=== PATIENT | male | born 1990 | race Caucasian/White ===

== ENCOUNTER 2017-11-23 04:00 | Emergency (ER) | payer OTHER, SELFPAY ==
[2017-11-23 04:02] VITALS: BP 127/65; PULSE 92; RESP 22; TEMP 36.4; O2SAT 96; BMI 36.0
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
[2017-11-23 04:06] VITALS: O2SAT 96
[2017-11-23] MEDS: 0.9% Normal Saline 1,000 ML 999 ML IV (04:13)
[2017-11-23] MEDS: Ondansetron 4 MG/2 ML Vial IV (04:14)
[2017-11-23] MEDS: fentaNYL 100 MCG/2 ML Ampul 50 MCG IV ×2 (04:14→04:27)
[2017-11-23] MEDS: Cefazolin 1 GM/50 ML BAG IV (04:14)
[2017-11-23] MEDS: Diphth,Pertuss(Acell),Tet Vac 0.5 ML Vial IM (04:16)
--- NOTE | 2017-11-23 04:21 | NURSING ---
CALLED [phone] REQUESTED BT THIS PT TO TELL MALAIKA SANCHEZ OF HIS SITUATION.
--- NOTE | 2017-11-23 04:22 | ED.RN ---
RAPID FAST EXAM NEGATIVE
--- NOTE | 2017-11-23 04:22 | ED.RN ---
LEFT WRIST SPLINTED AT THIS TIME
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
[2017-11-23 04:28] VITALS: BP 139/116; PULSE 81; RESP 12; O2SAT 100
--- NOTE | 2017-11-23 04:29 | ED.RN ---
PATIENT ADMITS TO TAKING 0.5 MG PO XANNAX TONIGHT
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
[2017-11-23 04:31] VITALS: BP 148/97; PULSE 86; RESP 20; O2SAT 98
--- NOTE | 2017-11-23 04:31 | ED.RN ---
[facility] AT THE BEDSIDE TO ASSUME PATIENT CARE
[2017-11-23 04:34] LABS: Absolute Lymphocyte Count 4.94 X10^3/ul (0.83-4.51); Absolute Neutrophil Count 24.5 X10^3/uL (2.0-7.7); Basophil# 0.04 X10^3/uL; Basophil% 0.1 % (0-1); Eosinophils% 0.3 % (0-5); Hemoglobin 13.1 g/dl (13.0-16.5); Lymphocyte # 4.94 X10^3/ul (4.0); Lymphocyte % 15.7 % (19-41); Mean Corp Hgb Conc 33.6 g/gl (32-36); Mean Corpuscular Hgb 30.4 pg (27.0-32.0); Mean Corpuscular Volume 90.5 fL (80-94); Mean Platelet Vol. 9.3 fl (6.2-12.0); Monocyte# 1.32 X10^3/uL; Monocyte% 4.2 % (0-10); Neutrophil # 24.53 X10^3/uL (2.7-7.7); Neutrophil % 78.1 % (47-70); Platelet Count 292 K/mm3 (150-450); RBC Distribution Width SD 43.1 fl (35.1-43.9); Red Blood Count 4.31 M/mm3 (4.6-6.2)
[2017-11-23 04:35] LABS: POSITIVE COUNT YES; POSITIVE DIFFERENTIAL YES; POSITIVE MORPHOLOGY NO; White Blood Count 31.4 K/mm3 (4.4-11.0)
--- NOTE | 2017-11-23 04:35 | ED.RN ---
LAB CALLED WITH CRITICAL RESULTS WBC COUNT 31.4. DR. MCBRIDE MADE AWARE. NO NEW ORDERS AT THIS TIME
[2017-11-23 04:36] LABS: Differential Indicated SCAN CRITERIA MET
[2017-11-23 04:57] LABS: Anion Gap 7 (5-15); BUN 11 mg/dL (7-18); BUN/Creat Ratio 12.2 RATIO (10-20); Chloride 108 mmol/L (98-107); EST Glomerular Filtration Rate 106 mL/min (>60); Est Glom Filt Rate - Afr Amer 128 mL/min (>60); Estimated Creatinine Clearance 134.12 ml/min; Glucose 136 mg/dL (74-106); Potassium 3.2 mmol/L (3.5-5.1); Sodium Level 140 mmol/L (136-145)
[2017-11-24 09:32] LABS: Pathologist Review Reviewed
== END 2017-11-23 04:40 | disposition short-term general hospital (02) ==
PROVIDERS: Emergency Provider Emergency Medicine; Family Provider Family Medicine; PCP Family Medicine
DX: S20.212A Contusion of left front wall of thorax, initial encounter (principal); S09.90XA Unspecified injury of head, initial encounter; S01.312A Laceration without foreign body of left ear, initial encounter; S00.12XA Contusion of left eyelid and periocular area, initial encounter; S09.92XA Unspecified injury of nose, initial encounter; S09.93XA Unspecified injury of face, initial encounter; M54.9 Dorsalgia, unspecified; S30.810A Abrasion of lower back and pelvis, initial encounter; M21.932 Unspecified acquired deformity of left forearm; V89.2XXA Person injured in unspecified motor-vehicle accident, traffic, initial encounter; Y93.9 Activity, unspecified; Y92.9 Unspecified place or not applicable; Z72.0 Tobacco use
CPT/HCPCS: 36415; 71045; 80048; 85025; 90715; 96365; 96375; 99285; J7030; A4216; J2405

== ENCOUNTER 2022-03-28 23:52 | Emergency (ER) | payer MEDICAID, SELFPAY ==
[2022-03-28 23:53] VITALS: BP 146/78; PULSE 75; RESP 16; TEMP 37.1; O2SAT 99; BMI 35.1
--- NOTE | 2022-03-29 00:26 | RAD_ITS ---
STUDY: X-RAY - LEFT KNEE REASON FOR EXAM: Male, 31 years old. Injury TECHNIQUE: 2 view(s) of the knee. COMPARISON: None. FINDINGS: Normal visualized distal femur. There is a depressed partially visualized fracture of the anterior lateral tibial plateau. There is at least a 7 day 10 mm depression of this fragment. There is minimal focal soft tissue edema however there is a large joint effusion. Normal proximal tibiofibular articulation. There is mild narrowing medial femorotibial compartment. There is mild peripheral widening due to a fracture of the anterior lateral tibial plateau. There is mild degenerative arthrosis of the patellofemoral articulation. There is a large volume joint effusion. RAD/Knee 1 or 2 Views IMPRESSION: There is a depressed partially visualized fracture of the anterior lateral tibial plateau. There is at least a 7 day 10 mm depression of this fragment. There is minimal focal soft tissue edema however there is a large joint effusion. Electronically Signed: Brandy Kc MD at 1:12 EDT ,
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
[2022-03-29] MEDS: Naproxen 250 MG Tablet 500 MG PO (00:37)
--- NOTE | 2022-03-29 01:57 | CT_ITS ---
STUDY: CT LOWER EXTREMITY WITHOUT CONTRAST INJECTION LEFT LEFT REASON FOR EXAM: Male, 31 years old. Tibial plateau fracture RADIATION DOSAGE (If Supplied By Facility): CTDIvol = ( 15.35 ) mGy, DLP = ( 653.11 ) mGycm. Individualized dose optimization techniques were used for this CT.? TECHNIQUE: Multiple axial images of the left lower extremity were obtained from the distal femur to the proximal tibia and fibula. Sagittal and coronal reformatted images were performed. COMPARISON: Knee x-ray March 29, 2022 FINDINGS: There is a comminuted fracture of the anterior and lateral aspect of the tibial plateau. This is more apparent on the CT scan than the plain film. The fracture line extends from the lateral to medial along the prior growth plate line. There is a fragmented appearance of the anterior and lateral aspect of the tibia with approximate depression of the fragment measuring up to 1 cm. The fragments are otherwise minimally displaced but numerous. In addition there is a fracture line on the medial aspect of the tibial shaft extending partially into the metaphysis. There is also a subtle fracture line involving the medial aspect of the tibia just under the articular surface. The bones are osteopenic. There is a focus of density within the mid aspect of the intramedullary portion of the bone which may represent focal bone edema. The fibula appears to be intact. There is a sizable air-fluid level within the joint space compatible with hemarthrosis. CT/Extremity Lower without Contra IMPRESSION: Comminuted fracture of the anterior tibia and lateral tibial plateau with depression. There is fragmentation across the anterior aspect of the tibia at the fracture line extending into the medial aspect of the tibia with out depression of the medial tibial plateau however there is a fracture line suggested just under the articular surface. Large hemorrhagic joint effusion. Electronically Signed: Brandy Kc MD at 2:41 EDT ,
[2022-03-29 02:35] VITALS: RESP 18
== END 2022-03-29 02:47 | disposition home or self-care (01) ==
PROVIDERS: Emergency Provider Emergency Medicine; PCP Family Medicine; Visit Provider Emergency Medicine
DX: S82.142A Displaced bicondylar fracture of left tibia, initial encounter for closed fracture (principal); F17.210 Nicotine dependence, cigarettes, uncomplicated; X50.1XXA Overexertion from prolonged static or awkward postures, initial encounter
CPT/HCPCS: 73560; 73700; 99284